=== PATIENT | male | born 1965 | race Two or more races ===

== ENCOUNTER 2023-01-09 20:55 | Emergency (ER) | payer OTHER ==
[~2023-01-09] VITALS: Ht 172.7 cm; Wt 190.0 kg
[2023-01-09 22:59] VITALS: BP 153/87
[2023-01-09] MEDS ORDERED: CLIN300C70 PO (22:59)
== END 2023-01-09 23:03 | disposition home or self-care (01) ==
LOC: ER 20:59
DX: S90.411A Abrasion, right great toe, initial encounter (principal); E11.9 Type 2 diabetes mellitus without complications; I10 Essential (primary) hypertension; Z88.6 Allergy status to analgesic agent; V86.99XA Unspecified occupant of other special all-terrain or other off-road motor vehicle injured in nontraffic accident, initial encounter; Y93.89 Activity, other specified; Y92.89 Other specified places as the place of occurrence of the external cause; Y99.8 Other external cause status
CPT/HCPCS: 73660

== ENCOUNTER → 2024-01-30 | Outpatient (CLI) | payer OTHER ==
[~2024-01-30] MED LIST: CLIN1CAP70 PO
[2024-01-30 07:22] LABS: Basophils # (auto) 0.1 10 ^3/uL (0-0.2); Basophils % (auto) 1.1 % (0.0-2.0); Eosinophils # (auto) 0.2 10 ^3/uL (0-0.8); Hematocrit 49.3 % (41.0-53.0); Hemoglobin 16.7 g/dL (13.5-17.5); Lymphocytes # (auto) 3.3 10 ^3/uL (0.4-5.4); Lymphocytes % (auto) 32.3 % (10.0-50.0); Mean Corpuscular Hemoglobin 29.3 pg (28.0-32.0); Mean Corpuscular Hgb Conc. 33.9 g/dL (32.0-36.0); Mean Corpuscular Volume 86.4 fL (80.0-100.0); Monocytes # (auto) 0.7 10 ^3/uL (0-1.3); Monocytes % (auto) 6.7 % (0.0-12.0); Neutrophils # (auto) 5.9 10 ^3/uL (1.6-8.6); Neutrophils % (auto) 57.9 % (37.0-80.0); Nucleated Red Blood Cells % 0.1 %; Red Cell Distribution Width 14.1 % (11.8-14.3); White Blood Cell 10.2 10^3/uL (4.4-10.8)
[2024-01-30 07:44] LABS: Urine Bacteria FEW /hpf (None Seen); Urine Blood 1+ /uL (Negative); Urine Clarity Clear (Clear); Urine Color Yellow (Yellow); Urine Hyaline Cast MANY /lpf (0 - 2); Urine Protein, UAD 3+ (Negative); Urine Specific Gravity 1.025 (1.001-1.035); Urine Urobilinogen Normal (Negative); Urine WBC 3 /hpf (0 - 3); Urine pH 6.5 (5.0-9.0)
[2024-01-30 08:40] LABS: Alanine Aminotransferase 13 U/L (7-40); Albumin 3.5 g/dL (3.2-4.8); Alkaline Phosphatase 116 U/L (46-116); Anion Gap 5 (5-15); Aspartate Aminotransferase 10 U/L (13-40); BUN/Creatinine Ratio 12.2 (10.0-20.0); Blood Urea Nitrogen 17 mg/dL (9-23); Calcium 9.1 mg/dL (8.5-10.1); Carbon Dioxide 25 mmol/L (20-30); Chloride 108 mmol/L (98-107); Glucose 130 mg/dL (74-106); LDL Cholesterol 153 mg/dL (< 100); Magnesium 1.6 mg/dL (1.6-2.6); Potassium 4.1 mmol/L (3.5-5.1); Sodium 138 mmol/L (136-145); Triglycerides 141 mg/dL (< 150)
[2024-01-30 08:41] LABS: Bilirubin, Total 0.5 mg/dL (0.2-1.0); Cholesterol 199 mg/dL (< 200); HDL Cholesterol 37 mg/dL (40-59); Total Protein 6.3 g/dL (5.7-8.2)
[2024-01-30 08:53] LABS: Uric Acid 7.6 mg/dL (3.7-9.2)
[2024-01-30 11:47] LABS: Creatinine, Urine 143.84 mg/dL (30.0-125.0)
[2024-01-30 12:04] LABS: Micro Albumin > 3800.0 mg/L (<30.0)
[2024-01-30 16:25] LABS: Folate (Folic Acid) 9.14 ng/mL (>5.38)
== END | disposition home or self-care (01) ==
LOC: LAB 07:06
PROVIDERS: ATTEND Internal Medicine
DX: E11.9 Type 2 diabetes mellitus without complications (principal); E78.5 Hyperlipidemia, unspecified; Z68.44 Body mass index [BMI] 60.0-69.9, adult
CPT/HCPCS: 36415; 80053; 80061; 81001; 82043; 82306; 82570; 82607; 82746; 83036; 83735; 84443; 84550; 85025; 87086

== ENCOUNTER 2025-01-10 14:46 | Emergency (ER) | payer OTHER ==
[~2025-01-10] VITALS: Ht 172.7 cm; Wt 187.1 kg
[2025-01-10 16:13] LABS: Basophils # (auto) 0.1 10 ^3/uL (0-0.2); Eosinophils # (auto) 0.2 10 ^3/uL (0-0.8); Eosinophils % (auto) 2.3 % (0.0-7.0); Hematocrit 45.6 % (41.0-53.0); Hemoglobin 15.3 g/dL (13.5-17.5); Lymphocytes # (auto) 2.2 10 ^3/uL (0.4-5.4); Lymphocytes % (auto) 20.6 % (10.0-50.0); Mean Corpuscular Hgb Conc. 33.7 g/dL (32.0-36.0); Mean Corpuscular Volume 86.1 fL (80.0-100.0); Monocytes # (auto) 0.9 10 ^3/uL (0-1.3); Monocytes % (auto) 8.2 % (0.0-12.0); Neutrophils # (auto) 7.2 10 ^3/uL (1.6-8.6); Neutrophils % (auto) 67.9 % (37.0-80.0); Nucleated Red Blood Cells % 0.2 %; Platelet Count (auto) 212 10^3/uL (140-450); Red Cell Distribution Width 13.4 % (11.8-14.3); White Blood Cell 10.7 10^3/uL (4.4-10.8)
--- NOTE | 2025-01-10 16:21 | ED.PDOC ---
Musculoskeletal HPI Comments HPI Domo 59 y.o male presents to the ED for an evaluation of his right lower extremity. Patient reports falling onto right leg 8-9 days ago, was limping and had pain for a couple days up until yesterday when he went to the gym. Patient reports going into the sauna with his compression sock on and pain subsided shortly after but did noticed some redness after taking the compression sock off. Patient went to follow up with a PA at his PCP's office today for his extremity, states his blood pressure was elevated at 190 systolic and was sent with a referral to the ED. The PA sent patient due to his pressure and extremity for IV antibiotics and to rule out cellulitis. Patient at this time continues to deny any pain including chest pain, SOB, fever, chills, open wounds. Patient took his blood pressure medication one hour prior to ED arrival and his blood pressure read 173/89 on triage assessment. Patient reports allergies to Ceftriaxone Vitals Temperature: 97.5 F Heart Rate: 78 Blood pressure: 173/89 SPO2: 95% RA RR: 16 Past Medical History: Lymphedema on left leg, HTN, and DM Past Surgical History: Right eye removal flash Beard. HPI: Poor Historian. no chest pain, no shortness of breath, no leg pain. Sent from PCP'soffice for evaluation of possible cellulitis of the right lower extremity. Patient was hypertensive at his PCP's office because he did not take his medications in the morning. He took his blood pressure medications an hour prior to arrival. His blood pressure has improved here in triage. We will continue to monitor. REVIEW OF SYSTEMS: CONSTITUTIONAL: Denies acute: fever, diaphoresis, chills, generalized weakness. HEAD: Denies acute: headache, photophobia Eyes: Denies acute: Double vision, vision loss, eye pain, eye discharge. EARS: Denies acute: tinnitus, hearing loss, ear discharge, ear pain, THROAT: Denies acute: sore throat, swelling, difficulty swallowing , pain with swallowing, change in voice. NECK: Denies acute: neck pain, neck swelling, stiff neck. HEART: Denies acute : chest pain, palpitations, LUNGS: Denies acute: SOB, wheezing, cough, hemoptysis ABDOMEN: Denies acute: abdominal pain, Nausea, Vomiting, diarrhea, melena , hematemesis, hematochezia SKIN: Denies acute: , , lesions, itchiness. EXTREMITIES: Denies acute: calf pain, numbness, tingling, weakness, denies pain in extremity. Denies acute: Low back pain. Neuro: Denies acute: focal neurological deficit, motor or sensory focal neurological deficit, tremors, seizure like activity, confusion, dizziness, change in mental status, loss of bowel or bladder function, cauda equina like symptoms. : Denies acute: dysuria, hematuria, flank pain, increase in urinary frequency. PSYCH: Denies acute: hallucination, suicidal ideation, homicidal ideation. PHYSICAL EXAM: General: --- no-----acute distress, awake and alert. Head: normocephalic, atraumatic. Neck: supple, trachea is midline, no swelling. Throat: Normal phonation. Eyes:, no erythema, no purulent discharge, no proptosis, no icterus. Heart: regular rate, regular rhythm, no significant murmur appreciated. Lungs: no apparent respiratory distress, Able to speak in full sentences. No wheezing, no rhonchi, no crackles. No stridors Clear to auscultation bilaterally. Abdomen: non tender to palpation, non distended, soft, no guarding, no rebound, + bowel sounds. Morbidly obese Neuro: Awake, Alert, oriented to name, self, situation, follows commands GCS=15. Speech is normal. Skin: no petechia, no purpura, no cyanosis, non-pale, not jaundice. Evaluation of the area of complaint: right lower extremity pitting edema 1/4. No deformity. No calf tenderness. Patient is neurovascularly intact in the affected extremity. This minimal mid rosen slight erythema that is tender to palpation. Makes eye contact. Right eye has been removed. moves all four extremities. Face: no apparent facial droop. Ambulating in the ED independently. Pedal pulses are palpable. ED COURSE: Chief Complaint: Lower Extremity Time Seen by MD: 15:50 Primary Care Provider: CALLUM Reviewed Notes: Nurses Notes, Allergies Allergies: Coded Allergies: Ceftriaxone (Verified Allergy, Unknown, 01/09/23) Home Meds Active Scripts Clindamycin Hcl (Clindamycin Hcl) 300 Mg Cap, 1 CAP PO TID for 7 Days, #21 CAP 0 Refills Prov:ABDULAZIZINOCENTE IZQUIERDO 01/09/23 Information Source: Patient Mode of Arrival: Ambulatory Location: Right Extremity Location: Leg Past Medical History PAST MEDICAL HISTORY: DM, HTN Surgical History (Other): right eye Family History Family History: Unknown Social History Smoker: Non-Smoker Alcohol: Denies ETOH Use Drugs: Denies Drug Use Lives In: Home Was a procedure done? Was a procedure done?: No Differential Diagnosis EXT Differential Diagnosis: Cellulitis, CHF, Deep Vein Thrombosis, Compartment Syndrome, Sprain, Contusion, Strain X-Ray, Labs, Meds, VS Vital Signs Date Time Temp Pulse Resp B/P (MAP) Pulse Ox O2 Delivery O2 Flow Rate FiO2 01/10/25 17:01 97.4 72 18 142/84 (103) 95 97.4 01/10/25 15:45 97.5 78 16 173/89 (117) 95 97.5 Lab Test 01/10/25 16:00 Range/Units White Blood Count 10.7 4.4-10.8 10^3/uL Red Blood Count 5.30 4.5-5.90 10^6/uL Hemoglobin 15.3 13.5-17.5 g/dL Hematocrit 45.6 41.0-53.0 % Mean Corpuscular Volume 86.1 80.0-100.0 fL Mean Corpuscular Hemoglobin 29.0 28.0-32.0 pg Mean Corpuscular Hemoglobin Concent 33.7 32.0-36.0 g/dL Red Cell Distribution Width 13.4 11.8-14.3 % Platelet Count 212 140-450 10^3/uL Mean Platelet Volume 7.6 6.9-10.8 fL Neutrophils (%) (Auto) 67.9 37.0-80.0 % Lymphocytes (%) (Auto) 20.6 10.0-50.0 % Monocytes (%) (Auto) 8.2 0.0-12.0 % Eosinophils (%) (Auto) 2.3 0.0-7.0 % Basophils (%) (Auto) 1.0 0.0-2.0 % Neutrophils # (Auto) 7.2 1.6-8.6 10 ^3/uL Lymphocytes # (Auto) 2.2 0.4-5.4 10 ^3/uL Monocytes # (Auto) 0.9 0-1.3 10 ^3/uL Eosinophils # (Auto) 0.2 0-0.8 10 ^3/uL Basophils # (Auto) 0.1 0-0.2 10 ^3/uL Nucleated Red Blood Cells 0.2 % Erythrocyte Sedimentation Rate 35 H 0-20 mm/hr Sodium Level 139 136-145 mmol/L Potassium Level 4.9 3.5-5.1 mmol/L Chloride Level 112 H 98-107 mmol/L Carbon Dioxide Level 21 20-31 mmol/L Anion Gap 6 5-15 Blood Urea Nitrogen 26 H 9-23 mg/dL Creatinine 2.44 H 0.700-1.30 mg/dL Glomerular Filtration Rate Calc 30 >90 mL/min BUN/Creatinine Ratio 10.7 10.0-20.0 Serum Glucose 161 H 74-106 mg/dL Lactic Acid Level 0.9 0.4-2.0 mmol/L Calcium Level 9.2 8.7-10.4 mg/dL Troponin I High Sensitivity 13 </=54 ng/L C-Reactive Protein High Sensitivity 0.57 <1.0 mg/dL B-Type Natriuretic Peptide 61.45 0-100 pg/mL [place] [id number] Ph: [phone] DIAGNOSTIC IMAGING Diagnostic Imaging Report : [id number] Signed PATIENT: FLASH BEARD ACCT: [id number] UNIT: [id number] : 1965 LOC: ER ROOM / BED: / AGE / SEX: 59 / M ADM STATUS: REG ER SERVICE 1553 ORDERING PHYSICIAN: ANDREW BLANKENSHIP DO PROCEDURE(s): RLDVT - RT Lower DVT REASON: SWELLING REDNESS ORDER NUMBER(s): [id number], ACCESSION NUMBER(s): [id number] Technique: Real-time ultrasound imaging, with color Doppler and compression of the right common femoral vein, femoral vein, greater saphenous vein, and po pliteal vein. Indication: SWELLING REDNESS Comparison: None Findings: There is normal compressibility and flow augmentation in all of the imaged deep veins. There are no filling defects. Impression: 1. No evidence of DVT in the right lower extremity ATED BY: FAUSTINO SMITH MD DICTATED DATE/TIME: 01/10/251642 SIGNED BY: FAUSTINO SMITH MD SIGNED DATE/TIME: 01/10/251642 CC: Time of 1ST Reevaluation: 16:13 Reevaluation 1ST: Unchanged Patient Education/Counseling: Diagnosis, Treatment Family Education/Counseling: Diagnosis, Treatment Comments Patient presented with the above HPI.---leg redness and swelling---workup was initiated. patient was found with the above mentioned diagnosis. the following medications were ordered: please refer to order lists of meds and tests obtained by myself Dr. Blankenship. Patient ED course and VS have been stabilized. Patient has been reassessed in the ED and remained in a stable condition. Pertinent incidental findings were discussed with the patient and/or family. Escalation of care considered: Consideration of escalation to observation or admission Patient was found with acute renal insufficiency. His creatinine today is 2.4 and the last record we have a proximally a year ago was 1.3. I contacted his PCP Dr. Beltran. He said they sent the patient is here for hypertensive evaluation systolic blood pressure greater than 200 at the clinic. Patient was ADMITTED to the medicine team for further evaluation and treatment of their presentation. I was later notified that the patient eloped. All the reports of any imaging studies that were ordered by myself were reviewed by myself. Departure 1 Departure Time of Disposition: 17:36 Impression: Primary Impression: Cellulitis of leg, right Additional Impressions: Acute renal insufficiency Hypertensive urgency Eloped from emergency department Disposition: ADMITTED INPATIENT Admit to: Tele Condition: Guarded Additional Instructions: Patient eloped. Below are instructions in case he returns. Additional instructions: You MUST follow-up with your primary care/family doctor in 1 to 2 days. If you are unable to see your primary care/family doctor, please return to our emergency room for re-assessment and re-evaluation in 1 to 2 days. Return to the emergency room here in our facility or to the nearest ER [facility] if your symptoms change or worsen. CONSULTATIONS: you MUST Follow-up for consultation as soon as possible with: cardiology and nephrology in 1-2 days. Please call for appointment. You MUST call the consultants office yourself to make an appointment. You may need to arrange that through your insurance and/or your primary/family doctor. If you are unable to see the senior billing consultant in 1 to 2 days, you must return to our emergency room (or any other ER of your choice) for re-assessment and re- evaluation. Adequate fluid hydration. Monitoring blood pressure at home at least 3 times a day. Repeat lower extremity ultrasound in 4-5 days if symptoms persist. Below is a copy of your radiological report for follow up: [place] [id number] Ph: [phone] DIAGNOSTIC IMAGING Diagnostic Imaging Report : [id number] Signed PATIENT: FLASH BEARD ACCT: [id number] UNIT: [id number] : 1965 LOC: ER ROOM / BED: / AGE / SEX: 59 / M ADM STATUS: REG ER SERVICE 1553 ORDERING PHYSICIAN: ANDREW BLANKENSHIP DO PROCEDURE(s): RLDVT - RT Lower DVT REASON: SWELLING REDNESS ORDER NUMBER(s): [id number], ACCESSION NUMBER(s): [id number] Technique: Real-time ultrasound imaging, with color Doppler and compression of the right common femoral vein, femoral vein, greater saphenous vein, and popliteal vein. Indication: SWELLING REDNESS Comparison: None Findings: There is normal compressibility and flow augmentation in all of the imaged deep veins. There are no filling defects. Impression: 1. No evidence of DVT in the right lower extremity ATED BY: FAUSTINO SMITH MD DICTATED DATE/TIME: 01/10/25 1643 SIGNED BY: FAUSTINO SMITH MD SIGNED DATE/TIME: 01/10/25 164 CC: Written Prescriptions Discharged With: Self Critical Care Note Critical Care Time?: No I personally scribed for ANDREW BLANKENSHIP DO ([email or web address]) on 01/10/25 at 16:21. Electronically submitted by Jasmine Mcneal ([facility]). I personally scribed for ANDREW BLANKENSHIP DO ([email or web address]) on 01/10/25 at 18:06. Electronically submitted by Jasmine Mcneal ([facility]). ANDREW BLANKENSHIP DO Jan 10, 2025 16:21
[2025-01-10 16:25] LABS: Potassium 4.9 mmol/L (3.5-5.1); Sodium 139 mmol/L (136-145)
[2025-01-10 16:26] LABS: Anion Gap 6 (5-15); Carbon Dioxide 21 mmol/L (20-31)
[2025-01-10 16:27] LABS: Calcium 9.2 mg/dL (8.7-10.4)
[2025-01-10 16:31] LABS: BUN/Creatinine Ratio 10.7 (10.0-20.0)
[2025-01-10 16:32] LABS: CRP High Sensitivity 0.57 mg/dL (<1.0)
[2025-01-10 16:38] LABS: Blood Urea Nitrogen 26 mg/dL (9-23); Chloride 112 mmol/L (98-107); Glucose 161 mg/dL (74-106)
--- NOTE | 2025-01-10 16:46 | DVH ---
Technique: Real-time ultrasound imaging, with color Doppler and compression of the right common femo ral vein, femoral vein, greater saphenous vein, and popliteal vein. Indication: SWELLING REDNESS Comparison: None Findings: There is normal compressibility and flow augmentation in all of the imaged deep veins. There are no f illing defects. Impression: 1. No evidence of DVT in the right lower extremity
[2025-01-10 17:01] VITALS: BP 142/84; PULSE 72; RESP 18; TEMP 97.4; O2SAT 95
[2025-01-10 17:16] LABS: Erythrocyte Sedimentation Rate 35 mm/hr (0-20)
[2025-01-10] MEDS ORDERED: CLINDAMYCIN 600MG IV 50 ML IV ONE (18:45)
== END 2025-01-10 20:23 | disposition left against medical advice (07) ==
LOC: ER 14:46
DX: L03.115 Cellulitis of right lower limb (principal); N28.9 Disorder of kidney and ureter, unspecified; I16.0 Hypertensive urgency; E11.9 Type 2 diabetes mellitus without complications; I10 Essential (primary) hypertension; Z88.1 Allergy status to other antibiotic agents; Z86.2 Personal history of diseases of the blood and blood-forming organs and certain disorders involving the immune mechanism; Z79.899 Other long term (current) drug therapy
CPT/HCPCS: 36415; 80048; 83605; 83880; 84484; 85025; 85652; 86141; 93971

== ENCOUNTER → 2025-02-15 | Outpatient (CLI) | payer OTHER ==
[2025-02-15 08:32] LABS: Triglycerides 135.0 mg/dL (< 150)
[2025-02-15 08:33] LABS: Cholesterol 155.0 mg/dL (< 200); Magnesium 1.8 mg/dL (1.6-2.6)
[2025-02-15 08:35] LABS: HDL Cholesterol 28.0 mg/dL (40-59)
[2025-02-15 08:50] LABS: Uric Acid 10.3 mg/dL (3.7-9.2)
[2025-02-15 10:17] LABS: Hepatitis B Surface Antigen Negative (Negative)
[2025-02-15 10:38] LABS: Hepatitis C Antibody Negative (Negative)
== END | disposition home or self-care (01) ==
LOC: LAB 06:43
PROVIDERS: ATTEND Internal Medicine
DX: E78.49 Other hyperlipidemia (principal); E61.2 Magnesium deficiency; E79.0 Hyperuricemia without signs of inflammatory arthritis and tophaceous disease; E55.9 Vitamin D deficiency, unspecified; D51.9 Vitamin B12 deficiency anemia, unspecified; R82.79 Other abnormal findings on microbiological examination of urine; R82.90 Unspecified abnormal findings in urine; R82.998 Other abnormal findings in urine; R94.6 Abnormal results of thyroid function studies; R68.89 Other general symptoms and signs; R73.09 Other abnormal glucose
CPT/HCPCS: 36415; 80061; 80074; 82306; 82607; 82746; 83036; 83735; 84480; 84550

== ENCOUNTER 2025-03-08 21:08 | Inpatient (IN) | payer OTHER ==
[~2025-03-08] VITALS: Ht 172.7 cm; Wt 185.5 kg
--- NOTE | 2025-03-08 21:29 | ED.PDOC ---
GI ASSESSMENT HPI Comments 59 year old male with a Hx of DM, HTN, dyslipidemia, GERD and Right eye Blindness transferred from [facility] where he presented complaining of diarrhea for the past 5 days, associated with burning rectal pain due to the diarrhea. Patient underwent workup including CT abdomen and pelvis which showed sigmoid diverticulitis. Patient received IV antibiotics and fluids at [facility]. On arrival to ED, patient is only complaining of burning rectal pain. He denies any abdominal pain, nausea or vomiting. Time Seen by MD: 21:24 Primary Care Provider: CALLUM Reviewed Notes: Nurses Notes, Safety Compliance Specialist Notes, Medications, Allergies Allergies: Coded Allergies: Ceftriaxone (Verified Allergy, Unknown, 01/09/23) Home Meds Active Scripts Clindamycin Hcl (Clindamycin Hcl) 300 Mg Cap, 1 CAP PO TID for 7 Days, #21 CAP 0 Refills Prov:INOCENTE CINTRON 01/09/23 Information Source: Patient, Emergency Med Personnel Mode of Arrival: EMS Timing: Days Duration: Intermittent, Days Prehospital treatment: Rotary Shear Cutter Quality: Aching, Cramping Vomitus: None Stool: Loose, Watery Severity: Moderate Recent: None Recent Hx of: Diabetes Pain Location: None Modifying Factors: Exertion, Position, Movement Associated sign and symptoms: Diarrhea Past Medical History PAST MEDICAL HISTORY: DM, GERD, High Lipids, HTN Past Medical History (Other): Right eye blindness, lymphedema Surgical History (Other): Left lower extremity laceration repair Family History Family History: Reviewed,noncontributory to illness Social History Smoker: Non-Smoker Alcohol: Denies ETOH Use Drugs: Denies Drug Use Lives In: Home All Other Systems: Reviewed and Negative (Comprehensive systems review obtained and negative except for what is stated in the HPI.) Physical Exam General Appearance: No Apparent Distress, Obese HEENT: Other (No facial asymmetry. Moist mucous membranes.) Neck: Full Range of Motion, Normal Inspection Respiratory: Lungs Clear, No Accessory Muscle Use, No Respiratory Distress, Normal Breath Sounds Cardiovascular: No Edema, No JVD, Regular Rate/Rhythm Breast Exam: Deferred Gastrointestinal: Non Tender, Soft Genitalia: Deferred Pelvic: Deferred Rectal: Deferred Extremities: Normal range of motion, Non-tender Neurologic: Alert (Oriented x4), Normal Affect, Normal Mood Cerebellar Function: NOT DONE Reflexes: NOT DONE Skin: Dry, Normal Color, Warm Lymphatic: NOT DONE Was a procedure done? Was a procedure done?: No GI differential Dx Differential Diagnosis: Diverticular disease, Gastritis/PUD, Gastroenteritis, UTI, Dehydration, Electrolyte Imbalance, Food Poisoning, Bacterial, Viral, Hypovolemia, Ischemic Bowel, Stress Ulcer, Kidney Stone X-Ray, Labs, Meds, VS Vital Signs Date Time Temp Pulse Resp B/P (MAP) Pulse Ox O2 Delivery O2 Flow Rate FiO2 03/08/25 21:20 98.9 78 16 152/118 98 98.9 Lab Test 03/08/25 21:17 Range/Units POC Glucose 129 H 70-106 mg/dl X-Ray, Labs, Meds, VS Comment 59 year old male with a Hx of DM, HTN, dyslipidemia, GERD and Right eye Blindness transferred from [facility] where he was diagnosed with sigmoid diverticulitis Vitals remarkable for BP 152/118 Exam unremarkable Rhythm strip independently interpreted by me: Sinus rhythm, rate 78, no ectopy. Patient treated with the following in the ED: Morphine 4 mg IV, Zofran 4 mg IV On re-evaluation, rectal pain has improved. Vitals were stable. Plan is to admit the patient for IV antibiotics and GI evaluation. Time of 1ST Reevaluation: 21:55 Reevaluation 1ST: Unchanged Patient Education/Counseling: Diagnosis, Treatment, Need For Follow Up Family Education/Counseling: No Family Present SEPSIS Sepsis Screen Physician Orders Carvedilol Tablet (Coreg Tablet) (03/09/25 10:00) Amlodipine Tablet (Norvasc Tablet) (03/09/25 10:00) Benazepril Hcl Tablet (Lotensin Tablet) (03/09/25 10:00) Clonidine Hcl Tablet (Catapres Tablet) (03/08/25 22:45) Consistent Carb(Ccho)Diabetes (03/09/25 Breakfast) Allergies (03/08/25 22:37) Code Status (03/08/25 22:37) Sodium Chloride 0.9% (03/08/25 22:45) Oxygen Per Hour (03/08/25 22:37) Hydrocodone-Acet 5/325mg Tab ([place] 5/32 (03/08/25 22:45) Ondansetron Hcl (Zofran) (03/08/25 22:45) Docusate Sodium Capsule (Colace Capsule) (03/08/25 22:45) Complete Blood Count (03/09/25 04:00) Comprehensive Metabolic Panel (03/09/25 04:00) Condition: Serious (03/08/25 22:37) Acetaminophen Tablet (Tylenol Tablet) (03/08/25 22:45) Bedrest With Bathroom Privileg (03/08/25 22:37) Sequential Compression Device (03/08/25 ) Vital Signs Date Time Temp Pulse Resp B/P (MAP) Pulse Ox O2 Delivery O2 Flow Rate FiO2 03/08/25 21:20 98.9 78 16 152/118 98 98.9 Departure 1 Departure Time of Disposition: 22:00 Impression: Primary Impression: Diverticulitis Disposition: ADMITTED INPATIENT Admit to: Med Surg Condition: Fair Critical Care Note Critical Care Time?: No Stability Stability form required: No Heart Score Heart Score: Heart Score Response (Comments) Value History N/A 0 EKG N/A 0 Age N/A 0 Risk Factors N/A 0 Troponin N/A 0 Total 0 I personally scribed for MICHELLE FREEDMAN MD ([email or web address]) on 03/08/25 at 21:29. Electronically submitted by Dayday Yan ([email or web address]). MICHELLE FREEDMAN MD Mar 08, 2025 21:29
[2025-03-08] MEDS ORDERED: HYDROcodone-ACET 5/325MG TAB PO PRN (22:45)
[2025-03-08] MEDS ORDERED: DOCUSATE SOD 100 MG CAP PO PRN (22:45)
[2025-03-08] MEDS ORDERED: ACETAMINOPHEN 325 MG TAB PO PRN (22:45)
[2025-03-08] MEDS ORDERED: ONDANSETRON HCL 4 MG/2 ML VIAL IV PRN (22:45)
--- NOTE | 2025-03-08 23:43 | DVHHP2 ---
History of Present Illness Reason for Visit: Diarrhea History of Present Illness The patient is a 59-year-old male morbidly obese with past medical history of GERD, diabetes mellitus, right eye blindness, hyperlipidemia, lymphedema, and hypertension who presented to [facility] ED transferred from [facility] with complaint of diarrhea for the past 5 days, associated with burning rectal pain. Patient underwent workup including abdomen/pelvis CT which showed sigmoid diverticulitis. Patient received IV antibiotics and fluids at [facility]. Patient was seen and evaluated in the ED, laboratory data shows WBC 9.5, platelets 219, sodium 140, potassium 4.5, BUN 24, creatinine 3.06, glucose 129, calcium 8.9. Patient was started on IV antibiotic regimen Flagyl, please see medication orders section in the computer. On my assessment, patient denied chest pain, no headache, no dizziness, no diaphoresis, no shortness of breath, no abdominal pain, no diarrhea at this moment, no nausea, no vomiting, no fever, no chills. Patient was admitted for further evaluation and medical management. Past Medical History DM, GERD, High Lipids, HTN, Right eye blindness, Lymphedema Past Surgical History Right eye surgery, Left lower extremity laceration repair Family History Reviewed, noncontributory to the management of this case. Past Social History The patient lives at home, denies smoking, alcohol or illicit drugs abuse. Review of Systems Constitutional: Yes: Other (Morbid obesity); No: Fever, Chills, Sweats, Weakness, Malaise Eyes: No: Pain, Vision change, Conjunctivae inflammation, Eyelid inflammation, Other, Redness ENT: No: Ear pain, Ear discharge, Nose pain, Nose discharge, Nose congestion, Mouth pain, Mouth swelling, Throat pain, Throat swelling, Other Respiratory: No: Cough, Dry, Shortness of breath, SOB with excertion, Wheezing, Hemoptysis, Pleuritic Pain, Sputum, Wheezing, Other Cardiovascular: No: Chest Pain, Palpitations, Orthopnea, Paroxysmal Noc. Dyspnea, Edema, Lt Headedness, Other Gastrointestinal: Diarrhea, Other (Rectal pain); No: Nausea, Vomiting, Abdominal Pain, Constipation, Melena, Hematochezia Genitourinary: No Dysuria, No Frequency, No Incontinence, No Hematuria, No Retention, No Other Musculoskeletal: No: other, neck pain, shoulder pain, arm pain, back pain, hand pain, leg pain, foot pain Skin: Other (Lower extremity skin discoloration); No: Rash, Lesions, Jaundice, Bruising Neurological: No: Weakness, Numbness, Incoordination, Change in speech, Confusion, Seizures, Other Allergies: Coded Allergies: Ceftriaxone (Verified Allergy, Unknown, 01/09/23) Medications Current Medications Medications Dose Ordered Sig/Marsha Route Start Time Stop Time Status Last Admin Dose Admin Carvedilol 12.5 mg Q12HR PO 03/09/25 10:00 Amlodipine Besylate 5 mg DAILY PO 03/09/25 10:00 Benazepril HCl 20 mg DAILY PO 03/09/25 10:00 Clonidine HCl 0.1 mg Q4HP PRN PO 03/08/25 22:45 Sodium Chloride 1,000 ml @ 60 mls/hr [id number] IV 03/08/25 22:45 Acetaminophen/ Hydrocodone Bitart 1 tab Q4HP PRN PO 03/08/25 22:45 Ondansetron HCl 4 mg Q4HP PRN IV 03/08/25 22:45 Docusate Sodium 100 mg BIDPRN PRN PO 03/08/25 22:45 Acetaminophen 650 mg Q6HP PRN PO 03/08/25 22:45 Exam Vital Signs Vital Signs Date Time Temp Pulse Resp B/P (MAP) Pulse Ox O2 Delivery O2 Flow Rate FiO2 03/08/25 21:20 98.9 78 16 152/118 98 98.9 General Appearance: Alert, Oriented X3, Cooperative, No acute distress HEENT: Atraumatic, PERRLA, EOMI, Mucous membr. moist/pink Respiratory: Normal air movement Cardiovascular: Regular rate, Normal S1, Normal S2, No murmurs Abdominal: Normal bowel sounds, Soft, No tenderness, No hepatospenomegaly, No masses Extremities: No clubbing, No cyanosis, No edema, Normal pulses, No tenderness/swelling Skin: No rashes, No significant lesion Neuro: Normal gait, Normal speech, Strength at 5/5 X4 ext, Normal tone, Sensation intact, Cranial nerves 3-12 NL, Reflexes 2+ Psych/Mental Status: Mental status NL, Mood NL Labs/Xrays Labs Test 03/08/25 21:17 Range/Units POC Glucose 129 H 70-106 mg/dl SEPSIS Sepsis Screen Date sepsis recognized/suspect: Mar 08, 2025 Time Sepsis recognized/suspect: 2119 Recent Procedure: No On Antibiotic Therapy: Yes Respiratory Rate >20: No Heart Rate >90: No Temp<36 C (96.8 F) or >38.3 C: No SBP <90 or MAP <65 mmHG: No New Acute Mental Status Change: No Is the patient on CPAP, BIPAP,: No Physician Orders Carvedilol Tablet (Coreg Tablet) (03/09/25 10:00) Amlodipine Tablet (Norvasc Tablet) (03/09/25 10:00) Benazepril Hcl Tablet (Lotensin Tablet) (03/09/25 10:00) Clonidine Hcl Tablet (Catapres Tablet) (03/08/25 22:45) Consistent Carb(Ccho)Diabetes (03/09/25 Breakfast) Allergies (03/08/25 22:37) Code Status (03/08/25 22:37) Sodium Chloride 0.9% (03/08/25 22:45) Oxygen Per Hour (03/08/25 22:37) Hydrocodone-Acet 5/325mg Tab (Paradise 5/32 (03/08/25 22:45) Ondansetron Hcl (Zofran) (03/08/25 22:45) Docusate Sodium Capsule (Colace Capsule) (03/08/25 22:45) Complete Blood Count (03/09/25 04:00) Comprehensive Metabolic Panel (03/09/25 04:00) Condition: Serious (03/08/25 22:37) Acetaminophen Tablet (Tylenol Tablet) (03/08/25 22:45) Bedrest With Bathroom Privileg (03/08/25 22:37) Sequential Compression Device (03/08/25 ) Admit (03/08/25 23:38) Nitroglycerin Sublingual (Ntrostat Subli (03/08/25 23:45) Morphine Sulfate Injection (03/08/25 23:45) Stat Ekg For Chest Pain (03/08/25 23:38) Notify Md Of Changes From Base (03/08/25 23:38) Traffic Engineering Technician For 24 Hours (03/08/25 23:38) Emergency Dysrhythmia Protocol (03/08/25 23:38) Rhythm Strips Once Every Shift (03/08/25 23:38) Oxygen By Nasal Cannula (03/08/25 23:38) Vital Signs Date Time Temp Pulse Resp B/P (MAP) Pulse Ox O2 Delivery O2 Flow Rate FiO2 03/08/25 21:20 98.9 78 16 152/118 98 98.9 Assessment/Plan Assessment/Plan Diarrhea Morbid obesity Sigmoid diverticulitis Acute renal failure Diabetes mellitus with hyperglycemia Plan 1. Admit to telemetry unit 2. Breathing treatment 3. Pain control management 4. IV antibiotic management 5. Management of fluids and electrolytes 6. Consultation for Nephrology/GI 7. Diagnostic test abdomen/pelvis CT 8. DVT prophylaxis-on SCDs 9. Repeat labs CBC, CMP in a.m. 10.Home medication reviewed and reconciled 11. Continue with current medical management 12. Treatment plan discussed with patient and RN. Patient verbalized unde rstanding. Plan discussed with: Patient, Other (RN) My Orders Orders - PARMJIT CONTRERAS DNP Procedure Category Date Status Time Carvedilol Tablet PHA 03/09/25 In Process (Coreg Tablet) 10:00 Amlodipine Tablet PHA 03/09/25 In Process (Norvasc Tablet) 10:00 Benazepril Hcl Tablet PHA 03/09/25 In Process (Lotensin Tablet) 10:00 Clonidine Hcl Tablet PHA 03/08/25 In Process (Catapres Tablet) 22:45 Consistent DIET 03/09/25 Transmitted Carb(Ccho)Diabetes Breakfast Allergies MORENITA 03/08/25 In Process 22:37 Code Status CODE 03/08/25 Transmitted 22:37 Sodium Chloride 0.9% PHA 03/08/25 In Process 22:45 Oxygen Per Hour RT 03/08/25 Transmitted 22:37 Hydrocodone-Acet PHA 03/08/25 In Process 5/325mg Tab (Paradise 22:45 Ondansetron Hcl PHA 03/08/25 In Process (Zofran) 22:45 Docusate Sodium PHA 03/08/25 In Process Capsule (Colace 22:45 Complete Blood Count LAB 03/09/25 Verified 04:00 Comprehensive LAB 03/09/25 Verified Metabolic Panel 04:00 Condition: Serious MORENITA 03/08/25 In Process 22:37 Acetaminophen Tablet PHA 03/08/25 In Process (Tylenol Tablet) 22:45 Bedrest With Bathroom MORENITA 03/08/25 In Process Privileg 22:37 Sequential MORENITA 03/08/25 In Process Compression Device Admit ADMIT 03/08/25 Verified 23:38 Nitroglycerin [facility] 03/08/25 Verified Sublingual (Ntrostat 23:45 Morphine Sulfate [facility] 03/08/25 Verified Injection 23:45 Stat Ekg For Chest [facility] 03/08/25 Verified Pain 23:38 Notify Md Of Changes [facility] 03/08/25 Verified From Base 23:38 Traffic Engineering Technician For [facility] 03/08/25 Verified 24 Hours 23:[address] [facility] 03/08/25 Verified Protocol 23:[address] [facility] 03/08/25 Verified Every Shift 23:38 Oxygen By Nasal RT 03/08/25 Verified Cannula 23:38 Problem List: (1) Diarrhea (2) Morbid obesity (3) Sigmoid diverticulitis (4) Acute renal failure (5) Diabetes mellitus with hyperglycemia Date of Service: Mar 08, 2025 Billing Provider: PARMJIT CONTRERAS DNP Common Visit Codes: [id number] INP/OBS CARE (HIGH) PARMJIT CONTRERAS DNP Mar 08, 2025 23:43
[2025-03-08] MEDS ORDERED: NITROGLYCERIN 0.4 MG SL TAB SL PRN (23:45)
[2025-03-08] MEDS ORDERED: MORPHINE SULFATE INJ 2 MG/ml SYRG IV PRN (23:45)
[2025-03-09] MEDS: SODIUM CHLORIDE 0.9% 1,000 ML IV SCH (03:17)
[2025-03-09] MEDS: ONDANSETRON HCL 4 MG/2 ML VIAL IV ONE (03:27)
[2025-03-09] MEDS: MORPHINE SULFATE 4 MG/ML SYR/VIAL IV ONE (03:27)
[2025-03-09 03:47] LABS: Hematocrit 45.6 % (41.0-53.0); Hemoglobin 15.4 g/dL (13.5-17.5); Mean Corpuscular Hemoglobin 29.6 pg (28.0-32.0); Mean Corpuscular Volume 87.5 fL (80.0-100.0); Nucleated Red Blood Cells % 0.2 %
[2025-03-09 04:10] LABS: Alanine Aminotransferase 11 U/L (7-40); Albumin 3.9 g/dL (3.2-4.8); Alkaline Phosphatase 103 U/L (46-116); Anion Gap 7 (5-15); BUN/Creatinine Ratio 7.8 (10.0-20.0); Calcium 8.9 mg/dL (8.7-10.4); Carbon Dioxide 23 mmol/L (20-31); Potassium 4.5 mmol/L (3.5-5.1); Sodium 140 mmol/L (136-145); Total Protein 6.6 g/dL (5.7-8.2)
[2025-03-09 04:11] LABS: Bilirubin, Total 0.5 mg/dL (0.2-1.0)
[2025-03-09 04:12] LABS: Blood Urea Nitrogen 24 mg/dL (9-23); Chloride 110 mmol/L (98-107); Glucose 121 mg/dL (74-106)
[2025-03-09 04:35] VITALS: BP 115/54; PULSE 66; RESP 17; TEMP 97.5; O2SAT 96
[2025-03-09 08:20] VITALS: PULSE 58; O2SAT 95
[2025-03-09] MEDS: BENAZEPRIL HCL 10 MG TAB PO SCH (09:55)
[2025-03-09] MEDS: CARVEDILOL 12.5 MG TAB PO SCH (09:55)
--- NOTE | 2025-03-09 15:28 | DVHINCON2 ---
Date of service: Mar 09, 2025 Referring Physician Chace Muse NP Reason for Consultation Acute kidney injury History of Present Illness Mr. Oliveros is a 59-year-old male with known history of morbid obesity, hypertension, ASHELY who presented for further evaluation and management of presyncopal symptoms. He was seen in the emergency department patient's is at the bedside and provided additional history. Mr. Oliveros reports significant nonbloody diarrhea earlier this week. He also reports one other individual in the home with similar symptoms. Initial evaluation at [facility] prior to transfer he was notified that his GFR was in the low 20 range. Baseline serum creatinine appears to be in the low one range. His creatinine here is three. He was seen in the emergency department awake alert conversant and in no acute distress. Past Medical History DM, GERD, High Lipids, HTN, Right eye blindness, Lymphedema Past Surgical History Right eye surgery, Left lower extremity laceration repair Allergies: Coded Allergies: Ceftriaxone (Verified Allergy, Unknown, 01/09/23) Home Meds Active Scripts Clindamycin Hcl (Clindamycin Hcl) 300 Mg Cap, 1 CAP PO TID for 7 Days, #21 CAP 0 Refills Prov:INOCENTE CINTRON 01/09/23 Current Medications Current Medications Medications (Trade) Dose Ordered Sig/Marsha Route PRN Reason Start Time Stop Time Status Last Admin Carvedilol (Coreg Tablet) 12.5 mg Q12HR PO 03/09/25 10:00 Amlodipine Besylate (Norvasc Tablet) 5 mg DAILY PO 03/09/25 10:00 03/09/25 09:54 Benazepril HCl (Lotensin Tablet) 20 mg DAILY PO 03/09/25 10:00 03/09/25 11:46 DC 03/09/25 09:55 Clonidine HCl (Catapres Tablet) 0.1 mg Q4HP PRN PO SBP>150 03/08/25 22:45 Sodium Chloride 1,000 ml @ 60 mls/hr [id number] IV 03/08/25 22:45 03/09/25 05:10 Acetaminophen/ Hydrocodone Bitart ([place] 5/325MG Tab) 1 tab Q4HP PRN PO MODERATE PAIN (4-6 PAIN SCALE) 03/08/25 22:45 Ondansetron HCl (Zofran) 4 mg Q4HP PRN IV NAUSEA / VOMITING 03/08/25 22:45 Docusate Sodium (Colace Capsule) 100 mg BIDPRN PRN PO FOR CONSTIPATION 03/08/25 22:45 Acetaminophen (Tylenol Tablet) 650 mg Q6HP PRN PO PAIN SCALE 1-3 OR TEMP>100.4 03/08/25 22:45 Nitroglycerin (Ntrostat Sublingual) 0.4 mg Q5MINP PRN SL FOR CHEST PAIN 03/08/25 23:45 Morphine Sulfate 2 mg Q30M PRN IV FOR CHEST PAIN 03/08/25 23:45 Metronidazole 100 ml @ 100 mls/hr Q8HR IV 03/09/25 06:00 03/09/25 14:15 Review of Systems Denies gross hematuria, dysuria, tea or Coca-Cola colored urine Denies excessive use of recent NSAIDs, foamy urine, recent IV contrast studies Denies recent chest pain, dyspnea, PND, orthopnea Denies fever, Denies unintentional weight loss, night sweats Denies focal weakness, numbness H&P Exam Vital Signs/I&O Vital Sign Date Time Temp Pulse Resp B/P (MAP) Pulse Ox O2 Delivery O2 Flow Rate FiO2 03/09/25 14:12 64 17 130/73 (92) 95 03/09/25 08:20 Nasal Cannula* 2 28 03/09/25 04:35 97.5 97.5 Physical Exam Gen: nad, morbidly obese heent: nc/at, mmm lungs: Distant breath sounds cvs: no rub abd: soft, bowel sounds audible ext: no edema skin: + rash neuro: alert and oriented Labs/Diagnostic Data Labs/Diagnostic Data Laboratory Tests Test 03/09/25 03:25 03/08/25 21:17 Range/Units White Blood Count 9.5 4.4-10.8 10^3/uL Red Blood Count 5.21 4.5-5.90 10^6/uL Hemoglobin 15.4 13.5-17.5 g/dL Hematocrit 45.6 41.0-53.0 % Mean Corpuscular Volume 87.5 80.0-100.0 fL Mean Corpuscular Hemoglobin 29.6 28.0-32.0 pg Mean Corpuscular Hemoglobin Concent 33.8 32.0-36.0 g/dL Red Cell Distribution Width 14.4 H 11.8-14.3 % Platelet Count 219 140-450 10^3/uL Mean Platelet Volume 7.5 6.9-10.8 fL Neutrophils (%) (Auto) 64.8 37.0-80.0 % Lymphocytes (%) (Auto) 21.0 10.0-50.0 % Monocytes (%) (Auto) 11.3 0.0-12.0 % Eosinophils (%) (Auto) 2.5 0.0-7.0 % Basophils (%) (Auto) 0.4 0.0-2.0 % Neutrophils # (Auto) 6.2 1.6-8.6 10 ^3/uL Lymphocytes # (Auto) 2.0 0.4-5.4 10 ^3/uL Monocytes # (Auto) 1.1 0-1.3 10 ^3/uL Eosinophils # (Auto) 0.2 0-0.8 10 ^3/uL Basophils # (Auto) 0 0-0.2 10 ^3/uL Nucleated Red Blood Cells 0.2 % Sodium Level 140 136-145 mmol/L Potassium Level 4.5 3.5-5.1 mmol/L Chloride Level 110 H 98-107 mmol/L Carbon Dioxide Level 23 20-31 mmol/L Anion Gap 7 5-15 Blood Urea Nitrogen 24 H 9-23 mg/dL Creatinine 3.06 H 0.700-1.30 mg/dL Glomerular Filtration Rate Calc 23 >90 mL/min BUN/Creatinine Ratio 7.8 L 10.0-20.0 Serum Glucose 121 H 74-106 mg/dL Calcium Level 8.9 8.7-10.4 mg/dL Total Bilirubin 0.5 0.2-1.0 mg/dL Aspartate Amino Transferase (AST) 14 13-40 U/L Alanine Aminotransferase (ALT) 11 7-40 U/L Alkaline Phosphatase 103 46-116 U/L Total Protein 6.6 5.7-8.2 g/dL Albumin 3.9 3.2-4.8 g/dL POC Glucose 129 H 70-106 mg/dl Assessment IMP: 1) Hemodynamically mediated acute kidney injury, prerenal etiology 2) CKD stage IIIA 3) history of hypertension 4) history of type 2 diabetes 5) possible enteritis as etiology for his diarrhea - now resolved REC: - IV fluids with normal saline - we will check urine studies, serial chemistry panels - avoidance of IV contrast / HIEU-inhibitor or ARB during time course of acute kidney injury recovery - anticipate improvement in kidney function with conservative means, discussed Plan of care from Nephrology perspective with patient and patient's at bedside Thank you for the consultation. Plan discussed with: Patient, Spouse TY ROCHA MD Mar 09, 2025 15:28
[2025-03-09 15:30] VITALS: PULSE 72; RESP 20; O2SAT 96
--- NOTE | 2025-03-09 18:34 | DVHPN2 ---
Subjective Overnight events noted patient is here for diarrhea and diverticulitis. Changes from previous H/P or p: No Changes Eyes: No Pain, No Vision change, No Conjunctivae inflammation, No Eyelid inflammation, No Other, No Redness ENT: No Ear pain, No Ear discharge, No Nose pain, No Nose discharge, No Nose congestion, No Mouth pain, No Mouth swelling, No Throat pain, No Throat swelling, No Other Cardiovascular: No Chest Pain, No Palpitations, No Orthopnea, No Paroxysmal Noc. Dyspnea, No Edema, No Lt Headedness, No Other Respiratory: No Cough, No Dry, No Shortness of breath, No SOB with excertion, No Wheezing, No Hemoptysis, No Pleuritic Pain, No Sputum, No Other Gastrointestinal: No Nausea, No Vomiting, No Abdominal Pain; Diarrhea; No Constipation, No Melena, No Hematochezia; Other (Rectal pain) Genitourinary: No Dysuria, No Frequency, No Incontinence, No Hematuria, No Retention, No Other Musculoskeletal: No other, No neck pain, No shoulder pain, No arm pain, No back pain, No hand pain, No leg pain, No foot pain Skin: No Rash, No Lesions, No Jaundice, No Bruising; Other (Lower extremity skin discoloration) Objective Vitals Vital Signs Date Time Temp Pulse Resp B/P (MAP) Pulse Ox O2 Delivery O2 Flow Rate FiO2 03/09/25 17:30 68 17 115/70 (85) 95 03/09/25 15:30 Nasal Cannula* 2 28 03/09/25 04:35 97.5 97.5 Exam HEENT pupils are reactive Neck is supple CV is S1-S2 regular rate and rhythm Respiratory diminished breath sounds bases GI positive bowel sounds soft obese nondistended nontender no guarding no rigidity Extremity no 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 Medications Current Medications Medications Dose Ordered Sig/Marsha Route Start Time Stop Time Status Last Admin Dose Admin Carvedilol 12.5 mg Q12HR PO 03/09/25 10:00 Amlodipine Besylate 5 mg DAILY PO 03/09/25 10:00 03/09/25 09:54 5 MG Clonidine HCl 0.1 mg Q4HP PRN PO 03/08/25 22:45 Sodium Chloride 1,000 ml @ 60 mls/hr [id number] IV 03/08/25 22:45 03/09/25 05:10 60 MLS/HR Acetaminophen/ Hydrocodone Bitart 1 tab Q4HP PRN PO 03/08/25 22:45 Ondansetron HCl 4 mg Q4HP PRN IV 03/08/25 22:45 Docusate Sodium 100 mg BIDPRN PRN PO 03/08/25 22:45 Acetaminophen 650 mg Q6HP PRN PO 03/08/25 22:45 Nitroglycerin 0.4 mg Q5MINP PRN SL 03/08/25 23:45 Morphine Sulfate 2 mg Q30M PRN IV 03/08/25 23:45 Metronidazole 100 ml @ 100 mls/hr Q8HR IV 03/09/25 06:00 03/09/25 14:15 100 MLS/HR Laboratory Results Laboratory Tests 03/09/25 03:25 Chemistry Test 03/09/25 03:25 Albumin 3.9 g/dL (3.2-4.8) Calcium Level 8.9 mg/dL (8.7-10.4) Total Protein 6.6 g/dL (5.7-8.2) LFT Test 03/09/25 03:25 Alanine Aminotransferase (ALT) 11 U/L (7-40) Alkaline Phosphatase 103 U/L (46-116) Aspartate Amino Transferase (AST) 14 U/L (13-40) Total Bilirubin 0.5 mg/dL (0.2-1.0) Assessment/Plan Assessment/Plan 59-year-old male with a known history of diabetes mellitus type 2, hypertension, morbid obesity classIII, sleep apnea who presented to the hospital with a diarrhea found to have 1. Diarrhea rule out C diff 2. Diverticulitis 3. Acute kidney injury with a underlying CKD stage 3 4. Diabetes mellitus type 2 5. Hypertension 6. Morbid obesity classIII 7. Obesity hypoventilation syndrome/sleep apnea -check stool for C diff continue IV antibiotics for diverticulitis, GI consultation, nephrology consultation. Plan discussed with: Patient Date of Service: Mar 09, 2025 Billing Provider: MILENA BARRON MD Common Visit Codes: [id number] INP/OBS CARE(MOD) MILENA BARRON MD Mar 09, 2025 18:34
[2025-03-10] VITALS (7 sets, daily range): BP systolic 106–148; BP diastolic 62–78; PULSE 64–74; RESP 14–20; TEMP 97.8–98.6; O2SAT 92–98
[2025-03-10 04:03] LABS: Anion Gap 6 (5-15); Carbon Dioxide 23 mmol/L (20-31); Sodium 142 mmol/L (136-145)
[2025-03-10 04:09] LABS: BUN/Creatinine Ratio 6.9 (10.0-20.0)
[2025-03-10 04:13] LABS: Blood Urea Nitrogen 25 mg/dL (9-23); Calcium 8.7 mg/dL (8.7-10.4); Chloride 113 mmol/L (98-107); Glucose 110 mg/dL (74-106); Potassium 5.1 mmol/L (3.5-5.1)
[2025-03-10] MEDS: SODIUM CHLORIDE 0.9% 1,000 ML IV SCH (09:30)
[2025-03-10] MEDS: SODIUM CHLORIDE 0.9% 1,000 ML IV ONE (09:41)
--- NOTE | 2025-03-10 10:50 | DVHINCON2 ---
Date of service: Mar 10, 2025 Referring Physician Almaz Reason for Consultation Diarrhea History of Present Illness Patient is a morbidly obese 59-year-old male with a past medical history significant for right eye blindness, diabetes, hypertension, lymphedema, sleep apnea, who was transferred from [facility] for acute diverticulitis. Patient states that his symptoms began one week ago when he ate tacos at a fast food restaurant. He states it that was greasy and he did not feel well. Patient has been having diarrhea since that time. He denies any hematochezia, fevers, chills, chest pain, shortness of breath. Patient has significant cramping abdominal pain. Patient states that he took Pepto-Bismol as well as Imodium which helped slightly however he continues to have abdominal pain that is cramping in nature. He states that he has had increase in bowel sounds and abdominal distention. He does not recall when his last colonoscopy was. GI consultation was obtained for evaluation. Patient states that he was told that he has a enlarged: And dilated colon on imaging Past Medical History As above, GERD Past Surgical History Right eye surgery Left lower extremity surgery Family History Gastrointestinal diseases or malignancies Social History No current tobacco, alcohol or recreational drug use Allergies: Coded Allergies: Ceftriaxone (Verified Allergy, Unknown, 01/09/23) Home Meds Active Scripts Clindamycin Hcl (Clindamycin Hcl) 300 Mg Cap, 1 CAP PO TID for 7 Days, #21 CAP 0 Refills Prov:INOCENTE CINTRON 01/09/23 Current Medications Current Medications Medications (Trade) Dose Ordered Sig/Marsha Route PRN Reason Start Time Stop Time Status Last Admin Sodium Chloride 1,000 ml @ 100 mls/hr Q10H IV 03/10/25 09:15 Review of Systems Review of systems as per HPI Denies anemia or malignancy Denies history of colon polyps Denies prior history of diverticulitis He is morbidly obese and has had diabetes No stroke or seizure No depression anxiety or psychosis No dysuria hematuria Vital Signs Vital Signs Date Time Temp Pulse Resp B/P (MAP) Pulse Ox O2 Delivery O2 Flow Rate FiO2 03/10/25 09:41 62 126/59 03/10/25 06:22 14 96 03/10/25 00:09 98.6 98.6 03/09/25 15:30 Nasal Cannula* 2 28 Physical Exam General: Morbidly obese wearing glasses HEENT: NC/AT EOMI PERRLA O/P clear, no JVD or cervical lymphadenopathy, no scleral icterus Heart: Regular rate and rhythm, no murmurs rubs or gallops Lungs: Clear to auscultation bilaterally, no wheezes rales or rhonchi Abdomen: Soft, obese, mild tenderness to palpation Extremity: Chronic venous insufficiency changes lower extremity and edema Neuro: Cranial nerves 2-12 grossly intact, moves all four extremities, no asterixis Labs/Diagnostic Data Labs Test 03/10/25 03:02 03/09/25 03:25 03/08/25 21:17 Range/Units Sodium Level 142 136-145 mmol/L Potassium Level 5.1 3.5-5.1 mmol/L Chloride Level 113 H 98-107 mmol/L Carbon Dioxide Level 23 20-31 mmol/L Anion Gap 6 5-15 Blood Urea Nitrogen 25 H 9-23 mg/dL Creatinine 3.62 H 0.700-1.30 mg/dL Glomerular Filtration Rate Calc 19 >90 mL/min BUN/Creatinine Ratio 6.9 L 10.0-20.0 Serum Glucose 110 H 74-106 mg/dL Calcium Level 8.7 8.7-10.4 mg/dL White Blood Count 9.5 4.4-10.8 10^3/uL Red Blood Count 5.21 4.5-5.90 10^6/uL Hemoglobin 15.4 13.5-17.5 g/dL Hematocrit 45.6 41.0-53.0 % Mean Corpuscular Volume 87.5 80.0-100.0 fL Mean Corpuscular Hemoglobin 29.6 28.0-32.0 pg Mean Corpuscular Hemoglobin Concent 33.8 32.0-36.0 g/dL Red Cell Distribution Width 14.4 H 11.8-14.3 % Platelet Count 219 140-450 10^3/uL Mean Platelet Volume 7.5 6.9-10.8 fL Neutrophils (%) (Auto) 64.8 37.0-80.0 % Lymphocytes (%) (Auto) 21.0 10.0-50.0 % Monocytes (%) (Auto) 11.3 0.0-12.0 % Eosinophils (%) (Auto) 2.5 0.0-7.0 % Basophils (%) (Auto) 0.4 0.0-2.0 % Neutrophils # (Auto) 6.2 1.6-8.6 10 ^3/uL Lymphocytes # (Auto) 2.0 0.4-5.4 10 ^3/uL Monocytes # (Auto) 1.1 0-1.3 10 ^3/uL Eosinophils # (Auto) 0.2 0-0.8 10 ^3/uL Basophils # (Auto) 0 0-0.2 10 ^3/uL Nucleated Red Blood Cells 0.2 % Total Bilirubin 0.5 0.2-1.0 mg/dL Aspartate Amino Transferase (AST) 14 13-40 U/L Alanine Aminotransferase (ALT) 11 7-40 U/L Alkaline Phosphatase 103 46-116 U/L Total Protein 6.6 5.7-8.2 g/dL Albumin 3.9 3.2-4.8 g/dL POC Glucose 129 H 70-106 mg/dl Microbiology Date/Time Source Procedure Growth Status 03/09/25 08:43 Stool Clostridium difficile Toxin Assay - Final Complete Assessment 1. History of acute diverticulitis 2. Diarrhea 3. Morbid obesity 4. Diabetes Differential diagnosis includes diverticulitis versus ischemic colitis versus infectious or inflammatory colitis. Problems(with codes): (1) Diverticulitis (2) Hypertensive urgency (3) Cellulitis of leg, right (4) Acute renal failure (5) Diarrhea (6) Morbid obesity Plan/Recommendation 1. Continue antibiotics 2. Consider repeat imaging with CT scan of the abdomen and pelvis 3. Clear liquid diet as tolerated 4. Follow up with stool tests to see if the patient has infectious colitis 5. Consider colonoscopy however not at this time Plan discussed with: Patient, Spouse ANTONETTE SEO MD Mar 10, 2025 10:50
--- NOTE | 2025-03-10 11:21 | DVHPN2 ---
Progress Note - Dictate Date Seen: Mar 10, 2025 Medical Necessity Reason Pt with a Central, PICC or Fol: No Subjective Patient seen ambulating the hallways in the ER with his . He states diarrhea has resolved. vital signs Vital Sign Date Time Temp Pulse Resp B/P (MAP) Pulse Ox O2 Delivery O2 Flow Rate FiO2 03/10/25 11:10 67 121/68 03/10/25 11:00 11 95 03/10/25 00:09 98.6 98.6 03/09/25 15:30 Nasal Cannula* 2 28 Total Intake and Output 03/09/25 03/09/25 03/10/25 14:59 22:59 06:59 Intake Total 460 ml 100 ml Balance 460 ml 100 ml medications Current Medications Medications Dose Ordered Sig/Marsha Route Start Time Stop Time Status Last Admin Dose Admin Carvedilol 12.5 mg Q12HR PO 03/09/25 10:00 03/10/25 09:41 12.5 MG Clonidine HCl 0.1 mg Q4HP PRN PO 03/08/25 22:45 Acetaminophen/ Hydrocodone Bitart 1 tab Q4HP PRN PO 03/08/25 22:45 Ondansetron HCl 4 mg Q4HP PRN IV 03/08/25 22:45 Docusate Sodium 100 mg BIDPRN PRN PO 03/08/25 22:45 Acetaminophen 650 mg Q6HP PRN PO 03/08/25 22:45 Nitroglycerin 0.4 mg Q5MINP PRN SL 03/08/25 23:45 Morphine Sulfate 2 mg Q30M PRN IV 03/08/25 23:45 Metronidazole 100 ml @ 100 mls/hr Q8HR IV 03/09/25 06:00 03/10/25 05:15 100 MLS/HR Sodium Chloride 1,000 ml @ 100 mls/hr Q10H IV 03/10/25 09:15 03/10/25 09:30 100 MLS/HR objective Gen: nad heent: nc/at, mmm lungs: cta anteriorly cvs: no rub abd: soft, bowel sounds audible ext: no edema laboratory and microbiology Laboratory Tests 03/10/25 03:02 03/09/25 03:25 Test 03/10/25 03:02 Range/Units Serum Glucose 110 H 74-106 mg/dL Assessment/Plan IMP: 1) Hemodynamically mediated acute kidney injury, prerenal etiology 2) CKD stage IIIA 3) history of hypertension 4) history of type 2 diabetes 5) possible enteritis as etiology for his diarrhea - now resolved REC: - we will hold amlodipine, continue to hold HIEU inhibitor due to relative hypotension. - judicious IV fluids, volume expansion today. - discussed plan of care from Nephrology perspective with Mr. Oliveros in his . Plan discussed with: Patient TY ROCHA MD Mar 10, 2025 11:21
[2025-03-10] MEDS ORDERED: DEXTROSE (50%) 50ML SYRG IV PRN (14:45)
[2025-03-10 14:49] LABS: Urine Amorphous Crystal FEW /hpf (None Seen); Urine Protein, UAD 3+ (Negative)
[2025-03-10] MEDS: ACCU-CHEK COMFORT CURVE STRIP VI SCH (16:29)
[2025-03-10] MEDS: InsuLIN REG 1unit/0.01ml Soln (100units/ml) SC SCH (16:29)
--- NOTE | 2025-03-10 17:22 | DVHPN2 ---
Subjective Overnight events noted patient is here for diarrhea and diverticulitis. Patient has stated diarrhea has been resolved, currently stool for C diff was pending. Changes from previous H/P or p: No Changes Eyes: No Pain, No Vision change, No Conjunctivae inflammation, No Eyelid inflammation, No Other, No Redness ENT: No Ear pain, No Ear discharge, No Nose pain, No Nose discharge, No Nose congestion, No Mouth pain, No Mouth swelling, No Throat pain, No Throat swelling, No Other Cardiovascular: No Chest Pain, No Palpitations, No Orthopnea, No Paroxysmal Noc. Dyspnea, No Edema, No Lt Headedness, No Other Respiratory: No Cough, No Dry, No Shortness of breath, No SOB with excertion, No Wheezing, No Hemoptysis, No Pleuritic Pain, No Sputum, No Other Gastrointestinal: No Nausea, No Vomiting, No Abdominal Pain; Diarrhea; No Constipation, No Melena, No Hematochezia; Other (Rectal pain) Genitourinary: No Dysuria, No Frequency, No Incontinence, No Hematuria, No Retention, No Other Musculoskeletal: No other, No neck pain, No shoulder pain, No arm pain, No back pain, No hand pain, No leg pain, No foot pain Skin: No Rash, No Lesions, No Jaundice, No Bruising; Other (Lower extremity skin discoloration) Objective Vitals Vital Signs Date Time Temp Pulse Resp B/P (MAP) Pulse Ox O2 Delivery O2 Flow Rate FiO2 03/10/25 13:55 97.8 65 18 127/77 (94) 98 97.8 03/09/25 15:30 Nasal Cannula* 2 28 Intake/Output Intake and Output 03/10/25 07:00 Intake Total 560 ml Balance 560 ml Intake IV Total 560 ml Exam HEENT pupils are reactive Neck is supple CV is S1-S2 regular rate and rhythm Respiratory diminished breath sounds bases GI positive bowel sounds soft obese nondistended nontender no guarding no rigidity Extremity no edema 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 Medications Current Medications Medications Dose Ordered Sig/Marsha Route Start Time Stop Time Status Last Admin Dose Admin Carvedilol 12.5 mg Q12HR PO 03/09/25 10:00 03/10/25 09:41 12.5 MG Clonidine HCl 0.1 mg Q4HP PRN PO 03/08/25 22:45 Acetaminophen/ Hydrocodone Bitart 1 tab Q4HP PRN PO 03/08/25 22:45 Ondansetron HCl 4 mg Q4HP PRN IV 03/08/25 22:45 Docusate Sodium 100 mg BIDPRN PRN PO 03/08/25 22:45 Acetaminophen 650 mg Q6HP PRN PO 03/08/25 22:45 Nitroglycerin 0.4 mg Q5MINP PRN SL 03/08/25 23:45 Morphine Sulfate 2 mg Q30M PRN IV 03/08/25 23:45 Metronidazole 100 ml @ 100 mls/hr Q8HR IV 03/09/25 06:00 03/10/25 14:25 100 MLS/HR Sodium Chloride 1,000 ml @ 100 mls/hr Q10H IV 03/10/25 09:15 03/10/25 09:30 100 MLS/HR Diagnostic Test (Pha) 1 strip ACHS 03/10/25 17:00 03/10/25 16:29 1 STRIP Insulin Human Regular ACHS SC 03/10/25 17:00 Dextrose 50 ml UD PRN IV 03/10/25 14:45 Laboratory Results Laboratory Tests 03/09/25 03:25 03/10/25 03:02 Chemistry Test 03/10/25 03:02 Calcium Level 8.7 mg/dL (8.7-10.4) Urinalysis Test 03/10/25 14:20 Urine Color Yellow (Yellow) Urine Clarity Clear (Clear) Urine pH 6.0 (5.0-9.0) Urine Specific [place] 1.018 (1.001-1.035) Urine Protein 3+ (Negative) H Urine Ketones 1+ (Negative) H Urine Blood 1+ /uL (Negative) H Urine Nitrite Negative (Negative) Urine Bilirubin Negative (Negative) Urine Urobilinogen Normal mg/dL (Negative) Urine Leukocyte Esterase Trace /uL (Negative) Urine RBC <1 /hpf (0 - 3) Urine Microscopic WBC 2 /HPF (0-3) Urine Squamous Epithelial Cells None seen /hpf (<5) Urine Amorphous Crystals Few /hpf (None Seen) Urine Bacteria None seen /hpf (None Seen) Urine Creatinine 228.20 mg/dL (30.0-125.0) H Urine Sodium 36 mmol/L (40-220) L Urine Glucose 1+ mg/dL (Normal) H Microbiology Microbiology Date/Time Source Procedure Growth Status 03/09/25 08:43 Stool Clostridium difficile Toxin Assay - Final Complete Assessment/Plan Assessment/Plan 59-year-old male with a known history of diabetes mellitus type 2, hypertension, morbid obesity classIII, sleep apnea who presented to the hospital with a diarrhea found to have 1. Diarrhea rule out C diff 2. Diverticulitis 3. Acute kidney injury with a underlying CKD stage 3 4. Diabetes mellitus type 2 5. Hypertension 6. Morbid obesity classIII 7. Obesity hypoventilation syndrome/sleep apnea -check stool for C diff continue IV antibiotics for diverticulitis, GI consultation, nephrology consultation. Plan discussed with: Patient, Spouse My Orders Orders - MILENA BARRON MD Procedure Category Date Status Time Glucose Blood PHA 03/10/25 In Process (Accu-Chek Comfort 17:00 Insulin R (Human) PHA 03/10/25 In Process (Insulin R) 17:00 Dextrose 50% Syringe PHA 03/10/25 In Process 14:45 Date of Service: Mar 10, 2025 Billing Provider: MILENA BARRON MD Common Visit Codes: [id number] INP/OBS CARE(MOD) MILENA BARRON MD Mar 10, 2025 17:22
[2025-03-11] VITALS (7 sets, daily range): BP systolic 131–143; BP diastolic 71–80; PULSE 57–66; RESP 18–20; TEMP 97.6–98.9; O2SAT 95–99
[2025-03-11 10:02] LABS: Hematocrit 44.1 % (41.0-53.0); Hemoglobin 14.9 g/dL (13.5-17.5); Mean Corpuscular Hemoglobin 29.5 pg (28.0-32.0); Mean Corpuscular Volume 87.6 fL (80.0-100.0); Nucleated Red Blood Cells % 0.1 %
[2025-03-11 10:20] LABS: Potassium 4.7 mmol/L (3.5-5.1); Sodium 142 mmol/L (136-145)
[2025-03-11 10:21] LABS: Anion Gap 8 (5-15); Calcium 9.0 mg/dL (8.7-10.4); Carbon Dioxide 22 mmol/L (20-31)
[2025-03-11 10:26] LABS: BUN/Creatinine Ratio 7.4 (10.0-20.0)
[2025-03-11 10:27] LABS: Magnesium 1.9 mg/dL (1.6-2.6)
[2025-03-11 10:29] LABS: Blood Urea Nitrogen 24 mg/dL (9-23); Chloride 112 mmol/L (98-107); Glucose 108 mg/dL (74-106)
--- NOTE | 2025-03-11 12:05 | DVHPN2 ---
Progress Note Date Seen: Mar 11, 2025 Medical Necessity Reason Pt with a Central, PICC or Fol: No Subjective Changes from previous H/P or p: No Changes Review of Systems: GI:Abnormal Objective vital signs Vital Sign Date Time Temp Pulse Resp B/P (MAP) Pulse Ox O2 Delivery O2 Flow Rate FiO2 03/11/25 09:32 62 143/75 03/11/25 09:00 97.9 18 97 97.9 03/11/25 08:00 Room Air* 0 21 Total Intake and Output 03/10/25 03/10/25 03/11/25 15:00 23:00 07:00 Intake Total 1160 ml 1100 ml 100 ml Balance 1160 ml 1100 ml 100 ml medications Current Medications Medications Dose Ordered Sig/Marsha Route Start Time Stop Time Status Last Admin Dose Admin Carvedilol 12.5 mg Q12HR PO 03/09/25 10:00 03/11/25 09:32 12.5 MG Clonidine HCl 0.1 mg Q4HP PRN PO 03/08/25 22:45 Acetaminophen/ Hydrocodone Bitart 1 tab Q4HP PRN PO 03/08/25 22:45 Ondansetron HCl 4 mg Q4HP PRN IV 03/08/25 22:45 Docusate Sodium 100 mg BIDPRN PRN PO 03/08/25 22:45 Acetaminophen 650 mg Q6HP PRN PO 03/08/25 22:45 Nitroglycerin 0.4 mg Q5MINP PRN SL 03/08/25 23:45 Morphine Sulfate 2 mg Q30M PRN IV 03/08/25 23:45 Metronidazole 100 ml @ 100 mls/hr Q8HR IV 03/09/25 06:00 03/11/25 05:25 100 MLS/HR Sodium Chloride 1,000 ml @ 100 mls/hr Q10H IV 03/10/25 09:15 03/11/25 05:25 100 MLS/HR Diagnostic Test (Pha) 1 strip ACHS 03/10/25 17:00 03/11/25 06:58 1 STRIP Insulin Human Regular ACHS SC 03/10/25 17:00 Dextrose 50 ml UD PRN IV 03/10/25 14:45 Examination: GENERAL:Abnormal, ABDOMEN:Abnormal laboratory and microbiology Laboratory Tests 03/11/25 09:49 Test 03/11/25 09:49 Range/Units Serum Glucose 108 H 74-106 mg/dL Microbiology Date/Time Source Procedure Growth Status 03/09/25 08:43 Stool Clostridium difficile Toxin Assay - Final Complete Problem List/Assessment/Plan Problem List/Assessment/Plan 59-year-old male presents to the hospital complaining of persistent diarrhea. Nephrology consulted due to elevated creatinine level. Acute kidney injury in the setting of volume depletion from diarrhea Chronic kidney disease stage IIIA Diarrhea Morbid obesity Continue IV fluid hydration Monitoring urinary output Obtain ultrasound of the kidney bladder Supportive care Avoid contrast studies at this time Plan discussed with: Patient My Orders My Orders Orders - AVEL ESTEVEZ MD Procedure Category Date Status Time Sodium Chloride 0.9% PHA 03/11/25 Logged 12:15 Total Time (mins): 26 AVEL ESTEVEZ MD Mar 11, 2025 12:05
[2025-03-11] MEDS: SODIUM CHLORIDE 0.9% 1,000 ML IV SCH (12:15)
--- NOTE | 2025-03-11 13:24 | DVH ---
INDICATION: JIGAR TECHNIQUE: Multiple real-time sonographic images of the kidneys and bladder were obtained. COMPARISON: None FINDINGS: The right kidney measures 11 cm in length, which is normal in size. There is normal echogen icity of the right kidney. No hydronephrosis. The left kidney measures 11 cm in length, which is normal in size. There is normal echogenicity of th e left kidney. No hydronephrosis. No large intraluminal masses are seen in the bladder. IMPRESSION: 1. Normal sonographic appearance of the kidneys. No hydronephrosis.
[2025-03-11] MEDS ORDERED: AUG875T PO (16:02)
--- NOTE | 2025-03-11 16:06 | DVHDS2 ---
Discharge Summary Date of Admission Mar 08, 2025 at 23:38 Date of Discharge: Mar 11, 2025 Labs/Diagnostic Data: Laboratory Results Test 03/11/25 12:04 03/11/25 09:49 03/10/25 14:20 03/09/25 03:25 POC Glucose 118 mg/dl (70-106) White Blood Count 7.7 10^3/uL (4.4-10.8) Red Blood Count 5.04 10^6/uL (4.5-5.90) Hemoglobin 14.9 g/dL (13.5-17.5) Hematocrit 44.1 % (41.0-53.0) Mean Corpuscular Volume 87.6 fL (80.0-100.0) Mean Corpuscular Hemoglobin 29.5 pg (28.0-32.0) Mean Corpuscular Hemoglobin Concent 33.7 g/dL (32.0-36.0) Red Cell Distribution Width 14.6 % (11.8-14.3) Platelet Count 219 10^3/uL (140-450) Mean Platelet Volume 7.7 fL (6.9-10.8) Neutrophils (%) (Auto) 55.3 % (37.0-80.0) Lymphocytes (%) (Auto) 32.3 % (10.0-50.0) Monocytes (%) (Auto) 9.0 % (0.0-12.0) Eosinophils (%) (Auto) 2.8 % (0.0-7.0) Basophils (%) (Auto) 0.6 % (0.0-2.0) Neutrophils # (Auto) 4.2 10 ^3/uL (1.6-8.6) Lymphocytes # (Auto) 2.5 10 ^3/uL (0.4-5.4) Monocytes # (Auto) 0.7 10 ^3/uL (0-1.3) Eosinophils # (Auto) 0.2 10 ^3/uL (0-0.8) Basophils # (Auto) 0 10 ^3/uL (0-0.2) Nucleated Red Blood Cells 0.1 % Sodium Level 142 mmol/L (136-145) Potassium Level 4.7 mmol/L (3.5-5.1) Chloride Level 112 mmol/L (98-107) Carbon Dioxide Level 22 mmol/L (20-31) Anion Gap 8 (5-15) Blood Urea Nitrogen 24 mg/dL (9-23) Creatinine 3.23 mg/dL (0.700-1.30) Glomerular Filtration Rate Calc 22 mL/min (>90) BUN/Creatinine Ratio 7.4 (10.0-20.0) Serum Glucose 108 mg/dL (74-106) Calcium Level 9.0 mg/dL (8.7-10.4) Magnesium Level 1.9 mg/dL (1.6-2.6) Urine Color Yellow (Yellow) Urine Clarity Clear (Clear) Urine pH 6.0 (5.0-9.0) Urine Specific [place] 1.018 (1.001-1.035) Urine Protein 3+ (Negative) Urine Ketones 1+ (Negative) Urine Blood 1+ /uL (Negative) Urine Nitrite Negative (Negative) Urine Bilirubin Negative (Negative) Urine Urobilinogen Normal mg/dL (Negative) Urine Leukocyte Esterase Trace /uL (Negative) Urine RBC <1 /hpf (0 - 3) Urine Microscopic WBC 2 /HPF (0-3) Urine Squamous Epithelial Cells None seen /hpf (<5) Urine Amorphous Crystals Few /hpf (None Seen) Urine Bacteria None seen /hpf (None Seen) Urine Creatinine 228.20 mg/dL (30.0-125.0) Urine Sodium 36 mmol/L (40-220) Urine Glucose 1+ mg/dL (Normal) Total Bilirubin 0.5 mg/dL (0.2-1.0) Aspartate Amino Transferase (AST) 14 U/L (13-40) Alanine Aminotransferase (ALT) 11 U/L (7-40) Alkaline Phosphatase 103 U/L (46-116) Total Protein 6.6 g/dL (5.7-8.2) Albumin 3.9 g/dL (3.2-4.8) Other Laboratory Tests 03/11/25 09:49 Brief Hx & Hospital Course: 59-year-old male with a known history of diabetes mellitus type 2, hypertension, morbid obesity classIII, sleep apnea who presented to the hospital with a diarrhea found to have sigmoid colon diverticulitis. The patient was at [facility] with a CT abdominal and pelvis was done. The patient was transferred to [facility] ER because of [facility] hospitalist patient. C diff has been ruled out. Patient has a acute kidney injury with with underlying CKD stage 3. Nephrology was consulted the patient was given IV hydration. Patient currently C diff has been ruled out and he is stable to be discharged on p.o. antibiotics with close follow up as an outpatient with the PCP, Nephrology, GI in 6-8 weeks for colonoscopy as patient has a sigmoid colon diverticulitis. Condition at Discharge: Stable Final Diagnosis/Problems List 59-year-old male with a known history of diabetes mellitus type 2, hypertension, morbid obesity classIII, sleep apnea who presented to the hospital with a diarrhea found to have 1. Diarrhea ruled out C diff 2. Mild sigmoid colon Diverticulitis 3. Acute kidney injury with a underlying CKD stage 3 4. Diabetes mellitus type 2 5. Hypertension 6. Morbid obesity classIII 7. Obesity hypoventilation syndrome/sleep apnea -check stool for C diff continue IV antibiotics for diver Discharge Disposition: Home SNF Discharge Will this Physician continue t: No Discharge Instruct/Medications Diet: Cardiac 2g Na,low cholest Diet comment: 1800 ADA diet Activity: No Restrictions, As Tolerated Follow Up/Referral: Follow up with the PCP in 1 week Follow up with the Nephrology with a repeat BMP in 1 week Follow up with GI Dr. Zeinab Schmidt as an outpatient for outpatient colonoscopy in 4-6 weeks after diverticulitis to get treated. Medications: Augmentin as prescribed. New Medications: Amoxicillin & Pot Clavulanate (Augmentin Tablet) 875 Mg Tb 875 MG PO BID for 10 Days, #20 TAB Discontinued Medications: Clindamycin Hcl (Clindamycin Hcl) 300 Mg Cap 1 CAP PO TID for 7 Days, #21 CAP 0 Refills Scheduled Amoxicillin & Pot Clavulanate (Augmentin Tablet), 875 MG PO BID Clindamycin Hcl (Clindamycin Hcl), 1 CAP PO TID Discharge Statement: "Patient was advised to return to the ER or call 911 if any headaches, dizziness, shortness of breath, chest pain, abdominal pain, bleeding, fevers, or worsening of medical condition. Patient was counseled about treatment plan, medications, possible side effects, patientverbalized understanding. All questions were answered to the best of my ability. This discharge took greater then 30 minutes in planning, reviewing documentation, counseling the patient, and discussing with other team members." ASSESSMENT ASSESSMENT Assessment 59-year-old male with a known history of diabetes mellitus type 2, hypertension, morbid obesity classIII, sleep apnea who presented to the hospital with a diarrhea found to have 1. Diarrhea ruled out C diff 2. Mild sigmoid colon Diverticulitis 3. Acute kidney injury with a underlying CKD stage 3 4. Diabetes mellitus type 2 5. Hypertension 6. Morbid obesity classIII 7. Obesity hypoventilation syndrome/sleep apnea -check stool for C diff continue IV antibiotics for diver Date of Service: Mar 11, 2025 Billing Provider: MILENA BARRON MD Common Visit Codes: [id number] DISCH DAY >30min MILENA BARRON MD Mar 11, 2025 16:06
== END 2025-03-11 18:00 | disposition home or self-care (01) | DRG 392 ==
LOC: EDBD 21:08 → ER 21:08 → OVERFLOW 23:38 → TELE-EAST 03-10 13:24
PROVIDERS: ADMIT Internal Medicine; ATTEND Internal Medicine
DX: K57.32 Diverticulitis of large intestine without perforation or abscess without bleeding (principal); N17.9 Acute kidney failure, unspecified; E66.2 Morbid (severe) obesity with alveolar hypoventilation; Z68.43 Body mass index [BMI] 50.0-59.9, adult; N18.31 Chronic kidney disease, stage 3a; E11.65 Type 2 diabetes mellitus with hyperglycemia; E11.22 Type 2 diabetes mellitus with diabetic chronic kidney disease; K21.9 Gastro-esophageal reflux disease without esophagitis; I12.9 Hypertensive chronic kidney disease with stage 1 through stage 4 chronic kidney disease, or unspecified chronic kidney disease; E78.5 Hyperlipidemia, unspecified; Z88.1 Allergy status to other antibiotic agents; Z79.2 Long term (current) use of antibiotics; Z79.899 Other long term (current) drug therapy
CPT/HCPCS: 36415; 76775; 80048; 80053; 81001; 82570; 82962; 83735; 84300; 85025; 87081; 87493; G0378; J3490

== ENCOUNTER 2025-04-01 08:03 | Outpatient (CLI) | payer OTHER ==
[~2025-04-01 08:03] MED LIST changes: +AUG875T PO; -CLIN1CAP70 PO
[2025-04-01 09:30] LABS: Hematocrit 44.9 % (41.0-53.0); Hemoglobin 15.1 g/dL (13.5-17.5); Mean Corpuscular Hemoglobin 29.4 pg (28.0-32.0); Mean Corpuscular Volume 87.0 fL (80.0-100.0); Nucleated Red Blood Cells % 0.0 %
[2025-04-01 09:33] LABS: Urine Protein, UAD 3+ (Negative)
[2025-04-01 09:53] LABS: Alanine Aminotransferase 15 U/L (7-40); Albumin 4.1 g/dL (3.2-4.8); Anion Gap 8 (5-15); BUN/Creatinine Ratio 10.8 (10.0-20.0); Calcium 9.1 mg/dL (8.7-10.4); Carbon Dioxide 23 mmol/L (20-31); Cholesterol 142 mg/dL (< 200); Potassium 5.0 mmol/L (3.5-5.1); Sodium 140 mmol/L (136-145); Total Protein 7.1 g/dL (5.7-8.2); Triglycerides 130 mg/dL (< 150)
[2025-04-01 09:54] LABS: Bilirubin, Total 0.4 mg/dL (0.2-1.0)
[2025-04-01 10:00] LABS: Alkaline Phosphatase 117 U/L (46-116); Blood Urea Nitrogen 31 mg/dL (9-23); Chloride 109 mmol/L (98-107); Glucose 119 mg/dL (74-106); HDL Cholesterol 27 mg/dL (40-59)
[2025-04-01 10:25] LABS: Uric Acid 10.2 mg/dL (3.7-9.2)
== END 2025-04-01 17:00 | disposition home or self-care (01) ==
LOC: LAB 08:03
PROVIDERS: ATTEND Internal Medicine
DX: E78.49 Other hyperlipidemia (principal); E61.2 Magnesium deficiency; E55.9 Vitamin D deficiency, unspecified; R68.89 Other general symptoms and signs; R94.6 Abnormal results of thyroid function studies; E79.0 Hyperuricemia without signs of inflammatory arthritis and tophaceous disease; R82.998 Other abnormal findings in urine; R82.79 Other abnormal findings on microbiological examination of urine; D51.9 Vitamin B12 deficiency anemia, unspecified; E11.9 Type 2 diabetes mellitus without complications
CPT/HCPCS: 36415; 80053; 80061; 81001; 82306; 82607; 82746; 83036; 83970; 84443; 84480; 84550; 85025; 87086

== ENCOUNTER 2025-05-28 10:37 | Outpatient (CLI) | payer OTHER ==
[2025-05-29 07:16] LABS: Hematocrit 43.9 % (41.0-53.0); Hemoglobin 14.8 g/dL (13.5-17.5); Mean Corpuscular Hemoglobin 29.3 pg (28.0-32.0); Mean Corpuscular Volume 86.8 fL (80.0-100.0); Nucleated Red Blood Cells % 0.0 %
[2025-05-29 07:29] LABS: Urine Protein, UAD 2+ (Negative)
[2025-05-29 07:32] LABS: Alanine Aminotransferase 17 U/L (7-40); Albumin 4.0 g/dL (3.2-4.8); Alkaline Phosphatase 94 U/L (46-116); Anion Gap 12 (5-15); BUN/Creatinine Ratio 10.3 (10.0-20.0); Bilirubin, Direct 0.2 mg/dL (<0.3); Bilirubin, Total 0.6 mg/dL (0.2-1.0); Calcium 9.4 mg/dL (8.7-10.4); Carbon Dioxide 20 mmol/L (20-31); Magnesium 1.9 mg/dL (1.6-2.6); Potassium 4.6 mmol/L (3.5-5.1); Sodium 140 mmol/L (136-145); Total Protein 7.4 g/dL (5.7-8.2)
[2025-05-29 07:34] LABS: Blood Urea Nitrogen 28 mg/dL (9-23); Chloride 108 mmol/L (98-107); Glucose 132 mg/dL (74-106); Protein, Urine 508.3 mg/dL (1-14)
[2025-05-29 09:10] LABS: Uric Acid 9.9 mg/dL (3.7-9.2)
== END 2025-05-28 17:00 | disposition home or self-care (01) ==
LOC: LAB 10:37
PROVIDERS: ATTEND Internal Medicine
DX: E11.22 Type 2 diabetes mellitus with diabetic chronic kidney disease (principal); N18.30 Chronic kidney disease, stage 3 unspecified; E11.21 Type 2 diabetes mellitus with diabetic nephropathy; E21.3 Hyperparathyroidism, unspecified; E55.9 Vitamin D deficiency, unspecified; N39.0 Urinary tract infection, site not specified; D63.1 Anemia in chronic kidney disease; R80.9 Proteinuria, unspecified; E78.49 Other hyperlipidemia; E61.2 Magnesium deficiency; E79.0 Hyperuricemia without signs of inflammatory arthritis and tophaceous disease; D51.9 Vitamin B12 deficiency anemia, unspecified; R82.79 Other abnormal findings on microbiological examination of urine; R82.90 Unspecified abnormal findings in urine; R82.998 Other abnormal findings in urine; R94.6 Abnormal results of thyroid function studies; R68.89 Other general symptoms and signs
CPT/HCPCS: 36415; 80053; 80076; 81001; 82306; 82570; 82607; 82746; 83036; 83735; 84156; 84443; 84480; 84550; 85025; 87086